=== PATIENT | female | born 1955 | race Caucasian/White ===

== ENCOUNTER 2019-03-20 11:50 | Emergency (ER) | payer OTHER, BC ==
[2019-03-20 11:59] VITALS: BP 145/76
[2019-03-20] MEDS ORDERED: predniSONE 20 MG TABLET PO STA (12:12)
[2019-03-20] MEDS ORDERED: HYDROcod/ACETAM 5/325 MG TABLET PO STA (12:12)
--- NOTE | 2019-03-20 12:13 | ED Physician Documentation ---
History of Present Illness - Stated complaint Stated Complaint: NECK PAIN - Chief complaint Chief Complaint: General - History obtained from History obtained from: Patient - History of Present Illness Timing: Last night (After light activity last night she developed progressive left-sided neck pain radiating into the shoulder with a shocklike occasional pain into the deltoid on the left. She feels a little tingly in the left upper extremity. She denies weakness there. She is never had this before.) Review of Systems Constitutional: denies: Fever, Chills Cardiac: denies: Chest pain / pressure, Palpitations Respiratory: denies: Dyspnea, Cough PD PAST MEDICAL HISTORY - Past Medical History Past Medical History: Yes GI: Ulcerative colitis - Present Medications Home Medications: Ambulatory Orders Medication Instructions Recorded Confirmed Hydrocodone/Acetaminophen 1 - 2 each PO Q6H PRN #14 tablet 03/20/19 [Hydrocodon-Acetaminophen 5-325] RX: predniSONE [Deltasone] 20 mg PO [id number] #21 tab 03/20/19 - Allergies Allergies/Adverse Reactions: Allergies Allergy/AdvReac Type Severity Reaction Status Date / Time aspirin AdvReac Unknown Verified 03/20/19 11:58 Sulfa (Sulfonamide AdvReac Unknown Verified 03/20/19 11:58 Antibiotics) PD ED PE NORMAL - Vitals Vital signs reviewed: Yes - General General: Alert and oriented X 3, No acute distress - HEENT HEENT: PERRL, EOMI - Neck Neck: Supple, no meningeal sign, No bony TTP - Extremities Extremities: No tenderness to palpate, Other (Equal institutional research director strength, thumb extension, interossei strength, flexion extension at the wrists and symmetric sensation throughout the upper extremities.) - Neuro Neuro: Alert and oriented X 3, Normal speech Results - Vitals Vitals: Vital Signs - 24 hr 03/20/19 11:54 Temperature 36.7 C Heart Rate 86 Respiratory 14 Rate Blood Pressure 145/76 H O2 Saturation 98 Oxygen O2 Source Room air PD MEDICAL DECISION MAKING - ED course ED course: 63-year-old woman visiting from [place] with symptoms of a left-sided cervical radiculopathy. No clear signs of same. We discussed advanced imaging today, as well as the likely lack of emergent findings onset imaging and she prefers to defer until she gets home to [place]. Departure - Departure Disposition: 01 Home, Self Care Clinical Impression: Cervical radiculopathy Condition: Good Record reviewed to determine appropriate education?: Yes Instructions: ED Cervical Radiculopathy Prescriptions: Hydrocodone/Acetaminophen [Hydrocodon-Acetaminophen 5-325] 1 - 2 each PO Q6H PRN #14 tablet PRN Reason: pain RX: predniSONE [Deltasone] 20 mg PO [id number] #21 tab Comments: Follow-up with your doctor on return home, return if new or worsening symptoms develop or if pain is intolerable despite the medications. Discharge Date/Time: 03/20/19 12:18
== END 2019-03-20 12:18 | disposition home or self-care (01) ==
LOC: ED 11:50
DX: M54.12 Radiculopathy, cervical region (principal)
CPT/HCPCS: 99282; 99283; A9270; J7512

== ENCOUNTER 2019-03-22 11:17 | Emergency (ER) | payer OTHER, BC ==
[2019-03-22] MEDS ORDERED: DEXAMETHASONE 10 MG/ML VIAL PO STA (12:15)
[2019-03-22] MEDS ORDERED: CHERRY SYRUP 10 ML UDC PO ONE (12:15)
--- NOTE | 2019-03-22 12:19 | ED Physician Documentation ---
PD HPI NECK PAIN - Stated complaint Stated Complaint: NECK PX - Chief complaint Chief Complaint: General - History obtained from History obtained from: Patient - History of Present Illness Timing - onset: How many days ago (3) Timing - duration: Days (3) Timing - details: Still present Location: Lower, Left Quality: Pain Worsened by: Movement, Lifting Recently seen: Emergency Dept (2 days ago.) - Additional information Additional information: The patient is a 63-year-old female who is visiting here from [facility] complaining of pain in her neck. The pain started 3 days ago after she was unloading suitcases from her car. She was seen in the emergency department here 2 days ago and was diagnosed with cervical radiculopathy for which she was prescribed prednisone and Vicodin. The patient returns today because of persistent pain. She describes pain shooting down her left arm with movement of her neck. She denies weakness, fever, or shortness of breath. She denies history of similar symptoms in the past. Review of Systems Constitutional: denies: Fever Ears: denies: Ear pain Nose: denies: Congestion Throat: denies: Sore throat Cardiac: denies: Chest pain / pressure Respiratory: denies: Dyspnea, Cough GI: denies: Abdominal Pain, Nausea, Vomiting Skin: denies: Rash Musculoskeletal: reports: Neck pain, Extremity pain (Left shoulder posteriorly.) Neurologic: denies: Focal weakness, Numbness, Headache PD PAST MEDICAL HISTORY - Past Medical History Endocrine/Autoimmune: None GI: Ulcerative colitis - Present Medications Home Medications: Ambulatory Orders Medication Instructions Recorded Confirmed Hydrocodone/Acetaminophen 1 - 2 each PO Q6H PRN #14 tablet 03/20/19 [Hydrocodon-Acetaminophen 5-325] predniSONE [Deltasone] 20 mg PO [id number] #21 tab 03/20/19 Oxycodone HCl/Acetaminophen 1 - 2 each PO Q6H PRN #14 tablet 03/22/19 [Percocet 5-325 mg Tablet] - Allergies Allergies/Adverse Reactions: Allergies Allergy/AdvReac Type Severity Reaction Status Date / Time aspirin AdvReac Unknown Verified 03/22/19 11:22 Sulfa (Sulfonamide AdvReac Unknown Verified 03/22/19 11:22 Antibiotics) - Social History Does the pt smoke?: No PD ED PE NORMAL - Vitals Vital signs reviewed: Yes (Systolic hypertension initially.) - General General: Alert and oriented X 3, Well developed/nourished - HEENT HEENT: Atraumatic, EOMI, Pharynx benign - Neck Neck: Supple, no meningeal sign, No bony TTP, No adenopathy, No JVD, Other (There is tenderness to palpation along the left paracervical musculature. No tenderness along the spinous processes.) - Cardiac Cardiac: RRR, No murmur - Respiratory Respiratory: No respiratory distress, Clear bilaterally - Abdomen Abdomen: Soft, Non tender - Back Back: No CVA TTP, No spinal TTP - Derm Derm: No rash - Extremities Extremities: No edema, Other (There is tenderness to palpation over the left trapezius musculature. She is able to elevate her left arm above her head. Distal neurovascular is intact.) - Neuro Neuro: Alert and oriented X 3, No motor deficit, No sensory deficit, Normal speech Results - Vitals Vitals: Oxygen O2 Source Room air - Rads (name of study) CT C-spine Radiology: Prelim report reviewed, EMP read contemporaneously, See rad report (Negative for acute osseous injury to the cervical spine. The paravertebral and prevertebral soft tissues are unremarkable. Mild degenerative changes including anterior osteophytosis and mild loss of disc space height are seen at C6-C7. Remaining cervical spine demonstrates no significant degenerative changes.) PD MEDICAL DECISION MAKING - ED course Complexity details: reviewed old records, reviewed results, re-evaluated patient, considered differential, d/w patient ED course: The patient's presentation is significant for left cervical radiculopathy. She describes shooting pains, consistent with cervical radiculopathy. Her physical examination reveals no motor or sensory deficit. CT scan of her cervical spine reveals no acute bony abnormality, and only mild DJD. Treatment in the emergency department included application of an arm sling. She reports that this made the pain worse rather than better. Oxycodone 5 mg is administered orally. She is being discharged with prescription for Percocet, 14 tablets. I discussed with her the results of the CT scan, symptomatic treatment and outpatient follow-up, as well as potentially worrisome signs or symptoms that should prompt reevaluation in the emergency department. Departure - Departure Disposition: 01 Home, Self Care Clinical Impression: Cervical radiculopathy Condition: Stable Instructions: ED Cervical Radiculopathy Prescriptions: Oxycodone HCl/Acetaminophen [Percocet 5-325 mg Tablet] 1 - 2 each PO Q6H PRN #14 tablet PRN Reason: pain Comments: Apply ice pack to the sore areas intermittently for the next 3 days. You can use ibuprofen, up to 800 mg 3 times daily for its anti-inflammatory effect. You can use Percocet as prescribed if needed for pain. Follow-up with your primary physician upon return to [place]. Return to the emergency department if you develop increasing pain, numbness or weakness, or otherwise worsening symptoms. Discharge Date/Time: 03/22/19 14:48
[2019-03-22] MEDS ORDERED: oxyCODONE 5 MG TABLET PO STA (12:36)
--- NOTE | 2019-03-22 13:32 | CT Report ---
Reason: lower neck pain with left cervical radiculopathy Procedure Date: 03/22/2019 Accession Number: [id number] / [id number] Procedure: CT - CERVICAL SPINE WO CPT Code: FULL RESULT: EXAM: CT CERVICAL SPINE WITHOUT CONTRAST DATE: 03/22/2019 01:08 PM. HISTORY: Lower neck pain with left cervical radiculopathy. COMPARISONS: None. TECHNIQUE: Thin-section axial images were acquired of the cervical spine without contrast. Post-processing: Coronal and sagittal reformats. Other: None. In accordance with CT protocol optimization, one or more of the following dose reduction techniques were utilized for this exam: automated exposure control, adjustment of mA and/or KV based on patient size, or use of iterative reconstructive technique. FINDINGS: Alignment: No scoliosis or spondylolisthesis. Bones: No fracture or bone lesion. Interspace Levels/Facets: Mild degenerative changes including anterior osteophytosis and mild loss of disk space height are seen at C6-C7. Remaining cervical spine demonstrates no significant degenerative changes. Musculature: Normal. No fatty atrophy. Other: The paravertebral and prevertebral soft tissues are unremarkable. The lung apices are clear. IMPRESSION: Negative for acute osseous injury to the cervical spine. [facility]
[2019-03-22 14:10] VITALS: BP 147/99
== END 2019-03-22 14:48 | disposition home or self-care (01) ==
LOC: ED 11:17
DX: M47.22 Other spondylosis with radiculopathy, cervical region (principal)
CPT/HCPCS: 72125; 99283; A9270; 80048